=== PATIENT | male | born 1955 | race Caucasian/White ===

== ENCOUNTER 2017-04-03 09:07 | Emergency (ER) | payer OTHER ==
[~2017-04-03] VITALS: Ht 182.9 cm; Wt 90.7 kg
[2017-04-03 09:13] VITALS: BP 144/89
--- NOTE | 2017-04-03 09:17 | NUR ---
Patient ambulated to bed 03.
--- NOTE | 2017-04-03 09:23 | NUR ---
Bucky massey in ED - 04/03/17 at [address] Hinkle evaluating patient at bedside.
--- NOTE | 2017-04-03 09:28 | NUR ---
PATIENT PRESENTS TO ED WITH PT PRESENTS TO ER W/C/O LEFT SIDED RIB PAIN S/P FALL AT WORK 5 DAYS AGO. PT DENIES ANY MEDICAL HX. DENIES N/V/D; SKIN IS PINK/WARM/DRY; AAOX4 WITH EVEN AND STEADY GAIT; LUNGS CLEAR BL; HR EVEN AND REGULAR; PT DENIES ANY FEVER, SOB, OR COUGH AT THIS TIME; PATIENT STATES PAIN OF 7/10 AT THIS TIME; VSS; PATIENT POSITIONED FOR COMFORT; HOB ELEVATED; BEDRAILS UP X2; BED DOWN. ER MD MADE AWARE OF PT STATUS.
--- NOTE | 2017-04-03 09:30 | NUR ---
Patient taken to XRAY via wheelchair per tech.
--- NOTE | 2017-04-03 09:54 | NUR ---
Dr. Hinkel evaluating patient at bedside.
[2017-04-03] MEDS ORDERED: KETOROLAC 60 MG/2 ML VIAL IM ONE (10:15)
[2017-04-03 11:17] VITALS: BP 123/85
--- NOTE | 2017-04-03 11:17 | NUR ---
Patient discharged with v/s stable. Written and verbal after care instructions given and explained. Patient alert, oriented and verbalized understanding of instructions. Ambulatory with steady gait. All questions addressed prior to discharge. ID band removed. Patient advised to follow up with PMD. Rx of MOTRIN, TRAMADOL given. Patient educated on indication of medication including possible reaction and side effects. Opportunity to ask questions provided and answered.
== END 2017-04-03 11:17 | disposition home or self-care (01) ==
LOC: MED 09:07
DX: S20.20XA Contusion of thorax, unspecified, initial encounter (principal); R03.0 Elevated blood-pressure reading, without diagnosis of hypertension; W01.0XXA Fall on same level from slipping, tripping and stumbling without subsequent striking against object, initial encounter; Y93.89 Activity, other specified; Y92.89 Other specified places as the place of occurrence of the external cause; Y99.8 Other external cause status
CPT/HCPCS: 71101; 96372; 99284; J1885